=== PATIENT | female | born 1985 | race Caucasian/White ===

== ENCOUNTER 2017-10-12 13:24 | Emergency (ER) | payer OTHER ==
[~2017-10-12 13:24] MED LIST: LORATADINE PO; NAPR220C12 PO; ONDA4TAB9 PO; PANT40TA65 PO; PER PO; PROM-110 PO; bcp PO
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
[2017-10-12] MEDS ORDERED: IBUPROFEN 600 MG TAB PO ONE (14:20)
[2017-10-12 15:15] VITALS: BP 107/86
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
== END 2017-10-12 15:43 | disposition home or self-care (01) ==
LOC: ER 13:39
DX: S66.911A Strain of unspecified muscle, fascia and tendon at wrist and hand level, right hand, initial encounter (principal); M62.830 Muscle spasm of back; V13.4XXA Pedal cycle driver injured in collision with car, pick-up truck or van in traffic accident, initial encounter
CPT/HCPCS: 71046; 99284

== ENCOUNTER → 2018-04-05 | Outpatient (CLI) | payer SELFPAY ==
--- NOTE | 2018-04-05 17:26 | RADIOLOGY IMAGING REPORT ---
FACILITY: [facility] PATIENT NAME: Ann Garner : 1985 MR: [id number] V: [id number] EXAM DATE: ORDERING PHYSICIAN: NINOSKA MOROCHO TECHNOLOGIST: Location: [facility] [place] Patient: Ann Garner : 1985 Visit/Account:[id number] Date of Sevice: 04/05/2018 KNEE 3 VIEWS BILATERAL COMPARISONS: None. ADDITIONAL PERTINENT HISTORY: 6 bilateral ongoing knee pain. FINDINGS: Osseous structures: Negative. Joint spaces: Negative. Surrounding soft tissues: Negative. IMPRESSION: Normal views of both knees. Report Dictated By: Pedro Schmid MD at 04/05/2018 5:21 PM Report E-Signed By: Pedro Schmid MD at 04/05/2018 5:22 PM WSN:[email or web address]
== END ==
LOC: RAD 16:41
PROVIDERS: ATTEND Nurse Practitioner Family
DX: M25.561 Pain in right knee (principal); M25.562 Pain in left knee